=== PATIENT | female | born 1965 ===

== ENCOUNTER 2020-02-15 20:49 | Emergency (ER) | payer SELFPAY ==
[~2020-02-15] VITALS: Ht 175.3 cm; Wt 68.0 kg
[2020-02-15 23:21] LABS: BASOPHILS % 0.6 % (0.0-2.0); EOSINOPHILS % 4.2 % (0.0-5.0); HEMATOCRIT. 43.8 % (36.0-48.0); HEMOGLOBIN. 14.4 g/dL (12.0-16.0); LYMPHOCYTES % 11.5 % (20.0-50.0); MEAN CORPUSCULAR HEMOGLOBIN 31.4 pg (28.0-32.0); MEAN CORPUSCULAR VOLUME 95.8 fL (81.0-99.0); MEAN PLATELET VOLUME 9.5 fl (7.4-10.4); MONOCYTES % 6.2 % (2.0-8.0); NEUTROPHILS % 77.5 % (40.0-76.0); PLATELET 200 x1000/uL (130-400); RED BLOOD CELL COUNT 4.57 mill/uL (4.2-5.4); RED CELL DISTRIBUTION WIDTH 13.6 % (11.6-14.6)
[2020-02-15 23:32] LABS: CHLORIDE 110 mEq/L (98-107)
[2020-02-16 03:55] VITALS: BP 126/84
== END 2020-02-16 03:56 | disposition home or self-care (01) ==
LOC: ER 20:49
DX: J45.901 Unspecified asthma with (acute) exacerbation (principal)
CPT/HCPCS: 36415; 71045; 80053; 85025; 93005; 99285